=== PATIENT | male | born 1970 | race Caucasian/White ===

== ENCOUNTER 2024-12-24 17:19 | Emergency (ER) | payer BC, SELFPAY ==
[2024-12-24 17:22] VITALS: BP 151/99
[2024-12-24] MEDS: MOTRIN 600 MG PO (20:15)
--- NOTE | 2024-12-25 00:03 | ED.SKININJ ---
HPI-Injury
General
Chief Complaint: Skin Surface Trauma
Source: patient
Exam Limitations: none
Time Seen by Provider: 12/24/24 18:01
Nursing documentation reviewed up to this point in time: agreed with
History of Present Illness-Injury
Is this injury a work related problem?: No
Is pt an associate of [facility]/[place]?: No
Initial Injury comments:
Patient states he got finger caught between tile. Has a flap laceration to right distal 4th finger. Injury occurred just [employer]
Past History
Past History
ED Past Medical History: None
ED Past Surgical History: None
Review of Systems
Review of Systems
Allergies reviewed?: Yes
All Other Systems: ROS reviewed and negative except as documented in HPI and ROS
Constitutional: Reports no symptoms
Musculoskeletal: Reports joint pain (pain to right 4th finger)
Skin: Reports other (flap laceratoin to right distal palmar 4th finger)
Neurological: Reports no symptoms
Psychiatric: Reports no symptoms
Skin Exam
Laceration
Right Distal Fourth Finger:
Length in cm: 2.5
Orientation: C shaped
Type of Laceration: simple
Any active bleeding?: no active bleeding
Distal skin color and temperature: normal-warm & good color
Normal distal neurovascular exam: Yes
Range of motion: full
Phy Exam
General Physical Exam
General Presentation: well appearing and mild distress
General age: appears stated age
General Skin: warm and dry
General Habitus: normal
General Mental: alert
Musculoskeletal Exam
Musculoskeletal Exam: full ROM and neuro vasc intact
Skin Exam
Skin Exam: normal color, warm/dry and no rash
Psychiatric Exam
Psychiatric Exam: normal mood/affect
Course
Orders/Labs/Results
Orders:
Orders
12/24/24 18:28
Finger(s)/Thumb 2 View Rt [CR Finger(s)/thumb Min 2 Vw Rt] Urgent
Comment:
Reason For Exam: trauma
12/24/24 20:05
Ibuprofen [Motrin] 600 mg PO NOW STA
12/24/24 20:28
Aluminium Finger Splint Right ONCE
Cephalexin Monohydrate [Keflex] 500 mg PO NOW STA
Vital Signs
Initial and Last Documented VS:
Initial Vital Signs
Temp Pulse Resp BP Pulse Ox
97.7 F 100 16 151/99 98
12/24/24 17:22 12/24/24 17:22 12/24/24 17:22 12/24/24 17:22 12/24/24 17:22
Last Documented Vital Signs
Temp Pulse Resp BP Pulse Ox
97.7 F 100 16 151/99 98
12/24/24 17:22 12/24/24 17:22 12/24/24 17:22 12/24/24 17:22 12/24/24 17:22
Procedures
Laceration Closure
Right Distal Palmar Fourth Finger:
Status of Wound: clean
Description of Wound Edges: sharp
Preparation: cleaned with saline and cleaned with Betadine
Anesthesia: 1% Lidocaine and Digital-Regional
Revision/Debridement: routine- no revision
Wound exploration: explored to base- no FB and no tendon involvement
Type of Closure: single layer closure
Skin Closure Material: 5-0 prolene
*Radiology
Radiology exam reviewed: radiology read reviewed
*Pulse Oximetry
SaO2: 98
Oxygen Mode of Delivery: Room air
Patient hypoxic: no
*Critical Care Note
Total Time (30-74mins, 75-104mins- exclusive of procedures): Not Applicable
ED Attending Note
-
Portions of this chart may have been created with voice recognition software.� Occasional wrong word or��sound alike� substitutions may have occurred due to the inherent limitations of voice recognition software.
Discharge Plan
Departure
Patient Disposition: Home (Routine Discharge)
Date of Disposition: 12/24/24
Time of Disposition: 20:30
Patient with high blood pressure during this ER visit?: No
Condition: Good
Covid-19: Not Applicable
Discharge Problem:
Crushing injury of finger, Finger fracture, Finger laceration
Instructions: Laceration Repair With Stitches (DC), Finger Fracture ED, Cold therapy for pain
Prescriptions:
New
cephalexin 500 mg capsule
500 mg PO BID 7 Days Qty: 14 0RF
hydrocodone-acetaminophen 5-325 mg tablet
1 tab PO Q4H PRN (Reason: Pain) Qty: 10 0RF
Referrals:
Jacob House MD [Active, Orthopedics] - Call in 1-3 days for appt
Chemo Garza, DO [Family Provider]
Interventions
Interventions:
*Risk Screen - Suicide Last Done: 12/24/24 17:22
*General Assessment Last Done: 12/24/24 17:22
*Neglect/Abuse Screening Last Done: 12/24/24 17:22
*ED- Fall Risk Assessment Last Done: 12/24/24 17:22
*ED COVID-19 Vaccine History Last Done: 12/24/24 17:26
*Nursing Disposition Last Done: 12/24/24 21:30
ED-Skin Assessment Last Done: 12/24/24 18:30
Discharge Date and Time
Discharge Date/Time: 12/24/24 21:00
Print Language: [place]ET[place]ESE
== END 2024-12-24 21:00 | disposition home or self-care (01) ==
LOC: EMR 17:19
PROVIDERS: EMERGENCY PHYSICIAN Emergency Medicine; FAMILY PHYSICIAN Family Medicine
DX: S61.214A Laceration without foreign body of right ring finger without damage to nail, initial encounter (principal); S67.10XA Crushing injury of unspecified finger(s), initial encounter; W23.0XXA Caught, crushed, jammed, or pinched between moving objects, initial encounter
CPT/HCPCS: 99283; 73140